=== PATIENT | male | born 1980 | race American Indian/Alaskan Native ===

== ENCOUNTER 2016-11-22 18:05 | Emergency (ER) | payer OTHER ==
[2016-11-22 18:17] VITALS: BP 120/78
[2016-11-22] MEDS ORDERED: Sulfamethoxazole/Trimethoprim 800-160 MG Tab PO ONE (18:29)
[2016-11-22] MEDS ORDERED: Doxycycline 100 MG Cap PO ONE (18:30)
[2016-11-22] MEDS ORDERED: Acetaminophen 325 MG Tab PO ONE (18:31)
[2016-11-22] MEDS ORDERED: Lidocaine 1% 50 ML MDV INJECT ONE (18:45)
--- NOTE | 2016-11-22 19:18 | EDM.PDOC ---
ED HPI GENERAL MEDICAL PROBLEM - General Chief Complaint: Lower Extremity Injury/Pain Stated Complaint: LEFT KNEE INFECTION Time Seen by Provider: 11/22/16 18:20 Source of Information: Reports: Patient, RN Notes Reviewed - History of Present Illness INITIAL COMMENTS - FREE TEXT/NARRATIVE: 36-year-old male comes in with infection of the left knee. This started as a small pimple type lesion a few days ago. He tried to squeeze it and did get some pus out. However over the past 2 days there has now been spreading of the area of erythema very small and localized to getting much more spread out. 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 Did drain a small amount of pus again last evening. There's been no further drainage today although a small richardson has developed again today. We' ve her or chills. No major swelling of the knee joint. No other lesions at this time and no prior history of anything of this nature. Left Knee Pain Score (Numeric/FACES): 5 - Related Data Allergies Allergy/AdvReac Type Severity Reaction Status Date / Time tramadol [From Ultram] Allergy Hives Verified 11/22/16 18:17 Home Meds: Home Meds Doxycycline [Vibramycin] 100 mg PO Q12HR #20 tablet 11/22/16 [Rx] Hydrocodone/Acetaminophen [[place] 5-325 Tablet] 1 each PO Q6HR PRN #10 tablet 02/28 [Rx] Sulfamethoxazole/Trimethoprim [Bactrim Ds Tablet] 1 each PO Q12HR #20 tablet 02/28 [Rx] Past Medical History - Past Health History Medical/Surgical History: Denies Medical/Surgical History - Past Surgical History Other Musculoskeletal Surgeries/Procedures:: ACL repairment. Social & Family History - Tobacco Use Smoking Status *Q: Current Every Day Smoker Years of Tobacco use: 19 Packs/Tins Daily: 0.7 Used Tobacco, but Quit: No Second Hand Smoke Exposure: Yes - Caffeine Use Caffeine Use: Reports: None - Alcohol Use Days Per Week of Alcohol Use: 0 - Recreational Drug Use Recreational Drug Use: No Review of Systems - Review of Systems Review Of Systems: See Below Constitutional: Denies: Chills, Fever Mouth/Throat: Reports: No Symptoms Respiratory: Reports: No Symptoms Cardiovascular: Denies: Chest Pain GI/Abdominal: Denies: Nausea, Vomiting Musculoskeletal: Reports: Other (Pain erythema mild swelling anterior aspect left knee) Skin: Reports: Erythema (Anterior aspect left knee) Neurological: Reports: No Symptoms ED EXAM, GENERAL - Physical Exam Exam: See Below General Appearance: Alert, No Apparent Distress Throat/Mouth: Normal Inspection, Normal Oropharynx Head: No: Facial Swelling Neck: Supple, Full Range of Motion Respiratory/Chest: No Respiratory Distress, Lungs Clear, Normal Breath Sounds Cardiovascular: Regular Rate, Rhythm Extremities: Redness (4-5 cm area of erythema anterior aspect left knee with a small raised white pustule visible. Active drainage at this time. Localized tenderness around the pustule but knee otherwise nontender, no effusion, good range of motion with some anterior discomfort) Neurological: No Motor/Sensory Deficits Skin Exam: Warm, Dry, Other (No other lesions visible) ED TRAUMA EXTREMITY PROCEDURES - I&D Site: Left anterior knee Skin Prep: Providone-Iodine (Betadine) Local Anesthesia: Lidocaine: 1% Plain Area Incised With: 11 Blade Drainage: Purulent, Bloody, Small Amount Course - Vital Signs Last Recorded V/S: Last Vital Signs Temp 98.4 F 11/22/16 18:15 Pulse 80 11/22/16 18:15 Resp 20 11/22/16 18:15 BP 120/78 11/22/16 18:15 Pulse Ox 95 11/22/16 18:15 - Orders/Labs/Meds Meds: Medications Discontinued Medications Generic Name Dose Route Start Last Admin Trade Name Ghada PRN Reason Stop Dose Admin Acetaminophen 975 mg 11/22/16 18:31 11/22/16 18:41 Tylenol PO 11/22/16 18:32 975 mg NOW ONE Administration Doxycycline Hyclate 200 mg 11/22/16 18:30 11/22/16 18:41 Vibramycin PO 11/22/16 18:31 200 mg ONETIME ONE Administration Lidocaine HCl 50 ml 11/22/16 18:45 11/22/16 19:15 Xylocaine 1% INJECT 11/22/16 18:46 50 ml ONETIME ONE Administration Ondansetron HCl 4 mg 11/22/16 19:21 Zofran Odt PO 11/22/16 19:22 ONETIME ONE Trimethoprim/Sulfamethoxazole 2 tab 11/22/16 18:29 11/22/16 18:41 Septra Ds PO 11/22/16 18:30 2 tab ONETIME ONE Administration Departure - Departure Time of Disposition: 19:25 Disposition: Home, Self-Care 01 Condition: Fair Clinical Impression: Cellulitis Qualifiers: Site of cellulitis of extremity: lower extremity Laterality: left - Discharge Information Prescriptions: Hydrocodone/Acetaminophen [[place] 5-325 Tablet] 1 each PO Q6HR PRN #10 tablet PRN Reason: Pain Doxycycline [Vibramycin] 100 mg PO Q12HR #20 tablet Sulfamethoxazole/Trimethoprim [Bactrim Ds Tablet] 1 each PO Q12HR #20 tablet Referrals: Hannah Cuellar, DIRECTOR OF MATERIALS MANAGEMENT [Primary Care Provider] - Forms: ED Department Discharge, ED Return to Work/School Form Additional Instructions: Warm compresses 3-4 times daily as discussed, Bactrim and doxycycline antibiotic as prescribed, your next dose each should be tomorrow morning and continue that twice daily for 10 days or until completely gone, rest your knee and leg tomorrow and Friday, return to work Friday if symptoms resolving to the point where you are able to do that as tolerated, follow-up clinic if symptoms not improving and beginning to resolve within 3-4 days as expected, return to ED if symptoms worsening in any way. Tylenol for mild to moderate discomfort or hydrocodone if needed for more severe pain. Do not drive or work when taking hydrocodone. Do not take Tylenol and hydrocodone at the same time.
[2016-11-22] MEDS ORDERED: Ondansetron 4 MG Tab.DIS PO ONE (19:21)
== END 2016-11-22 19:46 | disposition home or self-care (01) ==
LOC: JD.ED 18:05
DX: L03.116 Cellulitis of left lower limb (principal); F17.210 Nicotine dependence, cigarettes, uncomplicated; Z98.890 Other specified postprocedural states; Z88.5 Allergy status to narcotic agent
CPT/HCPCS: 10060; 99283; A9270

== ENCOUNTER 2017-11-29 17:54 | Emergency (ER) | payer SELFPAY ==
[2017-11-29 18:49] VITALS: BP 122/87
[2017-11-29] MEDS ORDERED: Lidocaine 1% 10 ML MDV INJECT ONE (19:02)
[2017-11-29] MEDS ORDERED: Diphtheria,Pertussis(Acell),Tetanus Vaccine 0.5 ML SDV IM ONE (19:02)
[2017-11-29] MEDS ORDERED: Amoxicillin/Clavulanate K 875-125 MG Tab PO ONE (19:06)
--- NOTE | 2017-11-29 19:07 | EDM.PDOC ---
ED HPI GENERAL MEDICAL PROBLEM - General Chief Complaint: Upper Extremity Injury/Pain Stated Complaint: R THUMB LAC/DOG BITE Time Seen by Provider: 11/29/17 19:02 Source of Information: Reports: Patient History Limitations: Reports: No Limitations - History of Present Illness INITIAL COMMENTS - FREE TEXT/NARRATIVE: 37-year-old male attends the ED with acute dog bite injury involving his right thumb. Due to straining to document hardware his dog was and the dog began fighting. In an attempt to separate them suffered a bite injury to his right thumb both on the dorsal and volar aspect. Range of motion and sensation are normal. He's not clear when his last tetanus toxoid was given. Wounds will be require suture repair. Denies any other injuries. He is not immunocompromised. Onset: Today Onset Date: 11/29/17 Onset Time: 17:30 Duration: Minutes: Location: Reports: Upper Extremity, Right (Right thumb most dorsal and volar aspects.) Quality: Reports: Ache, Burning Severity: Mild Improves with: Reports: Rest Worsens with: Reports: Movement Context: Reports: Trauma. Denies: Activity, Exercise (Dog bite.), Lifting, Sick Contact Associated Symptoms: Reports: No Other Symptoms Right Hand Pain Score (Numeric/FACES): 8 - Related Data Allergies Allergy/AdvReac Type Severity Reaction Status Date / Time tramadol [From Ultram] Allergy Hives Verified 11/29/17 18:34 Home Meds: Home Meds Amoxicillin/Potassium Clav [Augmentin 500-125 Tablet] 1 each PO BID #12 tablet 11/29/17 [Rx] oxyCODONE HCl/Acetaminophen [Percocet 5-325 mg Tablet] 1 - 2 each PO Q4H PRN #8 tablet 11/29/17 [Rx] Past Medical History - Past Health History Medical/Surgical History: Denies Medical/Surgical History - Past Surgical History Other Musculoskeletal Surgeries/Procedures:: ACL repairment. Social & Family History - Tobacco Use Smoking Status *Q: Current Every Day Smoker Years of Tobacco use: 20 Packs/Tins Daily: 0.5 - Caffeine Use Caffeine Use: Reports: None - Recreational Drug Use Recreational Drug Use: No - Living Situation & Occupation Living situation: Reports: Occupation: Employed Review of Systems - Review of Systems Review Of Systems: See Below Constitutional: Reports: No Symptoms Eyes: Reports: No Symptoms Ears: Reports: No Symptoms Nose: Reports: No Symptoms Mouth/Throat: Reports: No Symptoms Respiratory: Reports: No Symptoms Cardiovascular: Reports: No Symptoms GI/Abdominal: Reports: No Symptoms Genitourinary: Reports: No Symptoms Musculoskeletal: Reports: Other Neurological: Reports: No Symptoms (Acute injury to his right thumb from a dog bite. See history present illness) Psychiatric: Reports: No Symptoms ED EXAM, GENERAL - Physical Exam Exam: See Below Exam Limited By: No Limitations General Appearance: Alert, WD/WN, No Apparent Distress Peripheral Pulses: 3+: Radial (L), Radial (R) Extremities: Other (Examination of his right thumb shows a laceration across the DIP joint dorsally with full ability to flex and extend with no evidence clinically of tendon injury. Similarly there is a jagged laceration on the volar aspect of the thumb over the DIP joint which 2 does not show any evidence of flexor tendon injury. He has normal sensation to both radial and ulnar aspects of the tip of his thumb. Appears to be neurovascularly intact.) Neurological: Alert, Oriented, CN II-XII Intact, Normal Cognition Psychiatric: Normal Affect, Normal Mood Skin Exam: Warm, Dry, Intact, Normal Color, No Rash ED TRAUMA EXTREMITY PROCEDURES - Laceration/Wound Repair Right Digit - 1st (Thumb) Lac/Wound Length In cm: 2.5 (2.5 cm jagged laceration across the dorsal aspect of his right thigh and over the DIP joint.) Appearance: Subcutaneous, Stellate, Clean Distal NVT: No Tendon Injury Anesthetic Type: Local Local Anesthesia - Lidocaine (Xylocaine): 1% Plain Local Anesthetic Volume: 3cc Skin Prep: Saline Closed With: Sutures Suture Size: 4-0 # of Sutures: 8 Suture Type: Nylon, Interrupted, Simple Course - Vital Signs Last Recorded V/S: Last Vital Signs Temp 36.9 C 11/29/17 18:35 Pulse 94 11/29/17 18:35 Resp 16 11/29/17 18:35 BP 122/87 11/29/17 18:35 Pulse Ox 99 11/29/17 18:35 - Orders/Labs/Meds Orders: Active Orders 24 hr Category Date Time Status Vaccines to be Administered [RC] PER UNIT ROUTINE Care 11/29/17 19:02 Active Meds: Medications Discontinued Medications Generic Name Dose Route Start Last Admin Trade Name Freq PRN Reason Stop Dose Admin Amoxicillin/Clavulanate Potassium 1 tab 08/18/18 19:06 11/29/17 19:18 Augmentin 875 Mg/125 Mg PO 11/29/17 19:07 1 tab ONETIME ONE Administration Diphtheria/Tetanus/Acell Pertussis 0.5 ml 11/29/17 19:02 11/29/17 19:15 Adacel IM 11/29/17 19:03 0.5 ml .ONCE ONE Administration Lidocaine HCl 10 ml 11/29/17 19:02 11/29/17 19:18 Xylocaine 1% INJECT 11/29/17 19:03 10 ml ONETIME ONE Administration - Radiology Interpretation Free Text/Narrative:: 37-year-old male attends the ED with a dog bite to his right thumb. Has lacerations to both the dosage dorsal and volar aspect of the DIP joint of his thumb. T TDap will be updated today. Will be given Augmentin 875 mg in the ED. - Re-Assessments/Exams Free Text/Narrative Re-Assessment/Exam: 11/29/17 20:00: Lacerations to the dorsal and volar aspect of his right thumb were cleansed and debrided and then sutured under local anesthetic. 8 sutures are placed in the 2.5 cm laceration dorsal aspect of the thumb and 3 sutures are placed in the 1.2 cm laceration volar aspect of the thumb under local anesthetic. Patient will be placed on Augmentin 500 mg/125 mg 1 tablet twice a day for the next 6 days to prevent secondary wound infection. I also provided him with a few Percocet tabs 5/325 mg for pain relief. He is to cleanse the wound daily and apply topical antibiotic. 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 He is to have his sutures removed in 10 days' time he will follow-up sooner if there is any signs of developing infection such as rednesss, increased swelling and/or pain and/or obvious pus. Departure - Departure Time of Disposition: 20:11 Disposition: Home, Self-Care 01 Condition: Fair Clinical Impression: Laceration of thumb without complication Qualifiers: Encounter type: initial encounter Laterality: right Qualified Code(s): S61.011A - Laceration without foreign body of right thumb without damage to nail , initial encounter - Discharge Information *PRESCRIPTION DRUG MONITORING PROGRAM REVIEWED*: Not Applicable *COPY OF PRESCRIPTION DRUG MONITORING REPORT IN PATIENT QUENTIN: Not Applicable Prescriptions: Amoxicillin/Potassium Clav [Augmentin 500-125 Tablet] 1 each PO BID #12 tablet oxyCODONE HCl/Acetaminophen [Percocet 5-325 mg Tablet] 1 - 2 each PO Q4H PRN #8 tablet PRN Reason: pain relief. Instructions: Laceration Care, Adult Referrals: Hannah Cuellar MACHINE PIE MAKER [Primary Care Provider] - Forms: ED Department Discharge Additional Instructions: Evaluation the emergency room today in regards to a dog bite to your right thumb. This resulted in lacerations to both the dorsal and volar aspect or thumb over the DIP joint. No tendon involvement is evident clinically in the nerves are intact. Wounds were cleansed and then debrided and then sutured with 4-0 Ethilon 8 sutures on the volar aspect of thumb and 3 on the dorsal aspect of the thumb. Treatment at home is to daily cleanse the wounds with soap and water. Showering is okay but the wound should not be soaked under water. Then apply topical antibiotic such as bacitracin or Polysporin to the wounds once daily and cover with a bandage. You're home when the wound is going to stay clean you may remove the bandage and have it open to the air. Will need to take antibiotic Augmentin 500 mg twice daily for the next 6 days to prevent secondary wound infection. Next tablet would be due tomorrow morning. May use Motrin 600 mg every 6 hours to relieve pain and inflammation. I did provide you with a prescription for 8 tablets of Percocet 5/325 mg strength one or 2 every 4 -6 hours needed for the next day or so until the throbbing pain settles down. Continue to be removed in 10 days' time. Turn to medical care sooner if you see any signs of infection occurring such as increased redness, swelling or obvious pus. - My Orders Last 24 Hours: My Active Orders 11/29/17 19:02 Vaccines to be Administered [RC] PER UNIT ROUTINE - Assessment/Plan Last 24 Hours: My Active Orders 11/29/17 19:02 Vaccines to be Administered [RC] PER UNIT ROUTINE ED LACERATION/WOUND PROCEDURES - Laceration/Wound Repair Right Ventral Digit - 1st (Thumb) Laceration/Wound Length In cm: 1.2 (He has a 1.2 cm stellate laceration to the volar aspect of his thumb secondary to dog bite.) Appearance: Subcutaneous, Stellate, Clean Distal NVT: Neuro & Vascular Intact, No Tendon Injury Local Anesthesia - Lidocaine (Xylocaine): 1% Plain Local Anesthetic Volume: 2cc Skin Prep: Saline Suture Size: 4-0 # of Sutures: 3 Suture Type: Nylon, Interrupted, Simple
== END 2017-11-29 20:29 | disposition home or self-care (01) ==
LOC: JD.ED 17:54
DX: S61.011A Laceration without foreign body of right thumb without damage to nail, initial encounter (principal); F17.210 Nicotine dependence, cigarettes, uncomplicated; Z88.5 Allergy status to narcotic agent; Z23 Encounter for immunization; W54.0XXA Bitten by dog, initial encounter
CPT/HCPCS: 12002; 90471; 90715; 99283; A9270

== ENCOUNTER 2021-03-05 05:03 | Emergency (ER) | payer SELFPAY ==
[2021-03-05] MEDS ORDERED: Ketorolac 15 MG/ML SDV IVPUSH ONE (05:45)
--- NOTE | 2021-03-05 05:47 | EDM.PDOC ---
<Javon Herrmann - Last Filed: 03/05/21 08:11> ED HPI GENERAL MEDICAL PROBLEM - General Chief Complaint: ENT Problem Stated Complaint: SWOLLEN FACE Time Seen by Provider: 03/05/21 05:46 - Related Data Allergies Allergy/AdvReac Type Severity Reaction Status Date / Time tramadol [From Ultram] Allergy Severe Hives Verified 03/05/21 05:16 Home Meds: Home Meds cephALEXin [Keflex] 500 mg PO Q6H #40 cap 03/05/21 [Rx] ED ROS ENT - Review of Systems Review Of Systems: See Below Constitutional: Reports: No Symptoms HEENT: Reports: Other (rigth sided facial swelling) Respiratory: Reports: No Symptoms Cardiovascular: Reports: No Symptoms Endocrine: Reports: No Symptoms GI/Abdominal: Reports: No Symptoms ED EXAM, ENT - Physical Exam Exam: See Below Exam Limited By: No Limitations General Appearance: Alert, No Apparent Distress Head: Other (right sided facial swelling) Course - Re-Assessments/Exams Free Text/Narrative Re-Assessment/Exam: 03/05/21 08:[address] Joel. Transfer was arranged by [facility]. He refused to go. I explained to him that this is a serious infection and that he needs have surgery. If he does not he can . He understands the risks and still wants to leave. He will sign out against medical advice. I will get him on some keflex and have him follow up with Maxillofacial surgery in [place] and he is to return here if he is worse. Departure - Departure Disposition: Against Medical Advice 07 Clinical Impression: Facial abscess - Discharge Information *PRESCRIPTION DRUG MONITORING PROGRAM REVIEWED*: Not Applicable *COPY OF PRESCRIPTION DRUG MONITORING REPORT IN PATIENT QUENTIN: Not Applicable Prescriptions: cephALEXin [Keflex] 500 mg PO Q6H #40 cap Referrals: PCP,None [Primary Care Provider] - Forms: ED Department Discharge Additional Instructions: Take the keflex 4 times per day for 10 days. Put warm compresses on your face 3 times per day. Take tylenol or motrin for pain. Follow up with a maxillofacial surgeon in [place]. You can try the [facility] in [place]. Their number is . There are other options in [place]. Please return if you are worse. <Terrence Joel - Last Filed: 03/06/21 05:09> ED HPI GENERAL MEDICAL PROBLEM - General Source of Information: Reports: Patient History Limitations: Reports: No Limitations - History of Present Illness INITIAL COMMENTS - FREE TEXT/NARRATIVE: Patient 40-year-old male presenting to emergency room with right facial swelling and pain. Symptoms ongoing for the past 2 weeks. Patient took antibiotics of unknown etiology for about 2 days. States she is feeling better for short while got significantly worse last night. He states he can barely open his mouth and his eye due to severe swelling. Denies taking any pain medications are effective. Denies any recent dental work. Denies discharge or pain From the right ear. Left Face/Facial Pain Score (Numeric/FACES): 7 Past Medical History - Past Health History Medical/Surgical History: Denies Medical/Surgical History - Infectious Disease History Infectious Disease History: Reports: Chicken Pox - Past Surgical History Musculoskeletal Surgical History: Reports: Other (See Below) Other Musculoskeletal Surgeries/Procedures:: ACL repair Social & Family History - Family History Family Medical History: No Pertinent Family History - Tobacco Use Tobacco Use Status *Q: Current Every Day Tobacco User Years of Tobacco use: 25 Packs/Tins Daily: 1 - Caffeine Use Caffeine Use: Reports: Soda - Recreational Drug Use Recreational Drug Use: No - Living Situation & Occupation Living situation: Reports: Occupation: Employed Course - Vital Signs Last Recorded V/S: Last Vital Signs Temp 37.1 C 03/05/21 05:11 Pulse 87 03/05/21 08:30 Resp 20 03/05/21 08:30 BP 127/69 03/05/21 08:30 Pulse Ox 96 03/05/21 05:11 - Orders/Labs/Meds Labs: Laboratory Tests 03/05/21 03/05/21 Range/Units 06:00 06:00 WBC 10.09 H (4.23-9.07) K/mm3 RBC 4.30 L (4.63-6.08) M/mm3 Hgb 12.7 L (13.7-17.5) gm/dl Hct 37.7 L (40.1-51.0) % MCV 87.7 (79.0-92.2) fl MCH 29.5 (25.7-32.2) pg MCHC 33.7 (32.2-35.5) g/dl RDW Std Deviation 41.2 (35.1-43.9) fL Plt Count 376 H (163-337) K/mm3 MPV 9.2 L (9.4-12.3) fl Neut % (Auto) 71.7 H (34.0-67.9) % Lymph % (Auto) 18.7 L (21.8-53.1) % [place] % (Auto) 8.5 (5.3-12.2) % Eos % (Auto) 0.6 L (0.8-7.0) Baso % (Auto) 0.3 (0.1-1.2) % Neut # (Auto) 7.23 H (1.78-5.38) K/mm3 Lymph # (Auto) 1.89 (1.32-3.57) K/mm3 [place] # (Auto) 0.86 H (0.30-0.82) K/mm3 Eos # (Auto) 0.06 (0.04-0.54) K/mm3 Baso # (Auto) 0.03 (0.01-0.08) K/mm3 Sodium 136 (136-145) mEq/L Potassium 4.3 (3.5-5.1) mEq/L Chloride 100 (98-107) mEq/L Carbon Dioxide 27 (21-32) mEq/L Anion Gap 13.3 (5-15) BUN 16 (7-18) mg/dL Creatinine 0.7 (0.7-1.3) mg/dL Est Cr Clr Drug Dosing 133.00 mL/min Estimated GFR (MDRD) > 60 (>60) mL/min BUN/Creatinine Ratio 22.9 H (14-18) Glucose 129 H (70-99) mg/dL Calcium 8.3 L (8.5-10.1) mg/dL Total Bilirubin 0.3 (0.2-1.0) mg/dL AST 16 (15-37) U/L ALT 24 (16-63) U/L Alkaline Phosphatase 84 (46-116) U/L Total Protein 6.1 L (6.4-8.2) g/dl Albumin 3.0 L (3.4-5.0) g/dl Globulin 3.1 gm/dL Albumin/Globulin Ratio 1.0 (1-2) Meds: Medications Discontinued Medications Generic Name Dose Route Start Last Admin Trade Name Freq PRN Reason Stop Dose Admin Ampicillin Sodium/Sulbactam 100 mls @ 200 mls/hr 03/05/21 06:25 03/05/21 06:47 Sodium 3 gm/ Sodium Chloride IV 03/05/21 06:54 200 mls/hr ONETIME ONE Administration Metronidazole 500 mg/ Premix 100 mls @ 100 mls/hr 03/05/21 06:25 03/05/21 06:46 IV 03/05/21 07:24 100 mls/hr ONETIME ONE Administration Iopamidol 100 ml 03/05/21 05:50 03/05/21 06:16 Iopamidol 612 Mg/Ml 100 Ml Bottle IVPUSH 03/05/21 05:51 100 ml ONETIME ONE Administration Ketorolac Tromethamine 15 mg 03/05/21 05:45 03/05/21 06:02 Ketorolac 15 Mg/Ml Sdv IVPUSH 03/05/21 05:46 15 mg ONETIME ONE Administration Sodium Chloride 10 ml 03/05/21 05:50 03/05/21 06:13 Sodium Chloride 0.9% 10 Ml Sdv FLUSH 03/05/21 05:51 10 ml ONETIME ONE Administration Departure - Departure Time of Disposition: 07:20 Sepsis Event Note (ED) - Evaluation Sepsis Screening Result: No Definite Risk - Assessment/Plan Assessment:: 40-year-old male presenting with right-sided facial pain. Patient had no evidence of airway obstruction. Unremarkable ER course. Laboratory studies largely unremarkable. CT scan demonstrates evidence of a large right-sided mas seter abscess with a foreign body. The patient does state he has had this foreign body present for several years. Unfortunately, there is no [facility]FS on-call in [place]. I was able to speak with OM and Leticia, Dr. Harley, who agreed accept the patient for evaluation. Patient was initiated on antibiotics in the emergency room patient was given Unasyn and Flagyl. Patient was made NPO. At this point time, transportation has been arranged. If ground transportation is unable to happen, patient will have to require air transportation as he would likely require surgery for abscess drainage.
[2021-03-05] MEDS ORDERED: Sodium Chloride 0.9% 10 ML SDV FLUSH ONE (05:50)
[2021-03-05] MEDS ORDERED: Iopamidol 612 MG/ML 100 ML Bottle IVPUSH ONE (05:50)
[2021-03-05] MEDS ORDERED: Ampicillin/Sulbactam Na 3 GM in Sodium Chloride 0.9% 100 ML IV ONE (06:25)
[2021-03-05] MEDS ORDERED: metroNIDAZOLE/Normal Saline 500 MG in Premix Bag 1 BAG IV ONE (06:25)
--- NOTE | 2021-03-05 07:19 | CT ---
Addendum: Additional finding is bony destruction being seen within the posterior right mandible involving both sides of the cortex compatible with osteomyelitis. Inflammatory change also makes the masseter muscle ill-defined and previously described early abscess is felt to also involve the masseter muscle since this is in similar area of osteomyelitis. Metallic foreign body is also noted which is next to the right hemimandible and measures approximately 4.5 mm. Diagnostic code #3 I mostly agree with preliminary report from [facility], finalized on 03/05/21, 7:39 AM TRAINING GENERALIST, code 1 --- Addendum1 above dictated on [03/05/2021 07:48] by [Casandra Trinidad Hilton J.] --- --- Addendum1 above signed on [03/05/2021 07:54] by [Casandra Trinidad, Danilo Sanders] --- --- Original report below dictated on [03/05/2021 07:14] by [Casandra Trinidad Hilton J.] --- --- Original report below signed on [03/05/2021 07:17] by [Casandra Trinidad, Danilo Sanders] --- CT maxillofacial Technique: Multiple axial sections were obtained through the maxillofacial structures. Reconstructed coronal and sagittal images were obtained. Intravenous contrast was utilized. Comparison: No prior facial imaging is available. Findings: Diffuse soft tissue swelling is noted within the right lateral portions of the facial structures. This obscures the right sternocleidomastoid muscle and also obscures a portion of the right parotid salivary gland. Diffuse inflammatory change is noted within the subcutaneous fat anteriorly. Low density structure is seen within the soft tissue swelling measuring 3.5 cm which could represent an early abscess. Slightly prominent lymph nodes are seen within the right side of the neck. Mild mucosal thickening is seen within the right maxillary sinus. Mild mucosal thickening is noted within the ethmoid and frontal sinuses. Prevertebral soft tissues are within normal limits. Epiglottis is also within normal limits. No acute osseous abnormality is appreciated. Impression: 1. Diffuse right-sided soft tissue swelling within the lateral facial structures. Soft tissue swelling obscures the right sternocleidomastoid muscle and right parotid salivary gland. This area contains a low density finding measuring 3.5 cm suspicious for early abscess. Other findings are compatible with diffuse infection. 2. Mild mucosal thickening within the paranasal sinuses which most likely is chronic. 3. Slightly prominent lymph nodes on the right side most likely on an inflammatory basis. Diagnostic code #3 --- Addendum1 signed ---
[2021-03-05 10:18] VITALS: BP 127/69; PULSE 87
== END 2021-03-05 08:30 | disposition left against medical advice (07) ==
LOC: JD.ED 05:03
DX: L02.01 Cutaneous abscess of face (principal); Z88.5 Allergy status to narcotic agent; Z72.0 Tobacco use
CPT/HCPCS: 36415; 70487; 80053; 85025; 96365; 96368; 96375; 99284; J0295; J1885; J3490; Q9967; 99285

== ENCOUNTER 2021-05-21 04:57 | Emergency (ER) | payer SELFPAY ==
[2021-05-21] MEDS: Sodium Chloride 0.9% 10 ML Syringe FLUSH PRN ×2 (05:42→06:02)
[2021-05-21] MEDS ORDERED: Iopamidol 612 MG/ML 100 ML Bottle IVPUSH ONE (06:01)
[2021-05-21] MEDS ORDERED: Sodium Chloride 0.9% 10 ML SDV FLUSH ONE (06:01)
[2021-05-21] MEDS ORDERED: Sodium Chloride 0.9% 100 ML IV SCH (06:15)
[2021-05-21] MEDS ORDERED: Clindamycin Phosphate in D5W 900 MG in Premix Bag 1 BAG IV ONE ×2 (07:41)
[2021-05-21 07:51] VITALS: BP 103/74; PULSE 62
== END 2021-05-21 08:38 | disposition home or self-care (01) ==
LOC: JD.ED 04:57
DX: K04.7 Periapical abscess without sinus (principal); Z88.5 Allergy status to narcotic agent; Z72.0 Tobacco use
CPT/HCPCS: 36415; 70487; 70491; 85025; 86140; 87070; 87075; 87205; 96365; 99283; J3490; Q9967; 99285